=== PATIENT | female | born 1945 | race Caucasian/White ===

== ENCOUNTER → 2018-09-02 | Outpatient (CLI) | payer MEDICARE, BC ==
--- NOTE | 2018-09-02 12:28 | Diagnostic Imaging Report ---
INDICATION: Postmenopausal screening for osteoporosis. COMPARISON: None. FINDINGS: AP Spine L1-L4: [BMD (g/cm2): 1.011] [T-Score: -1.6] [Z-Score: 0.0] [BMD Previous: 1.061] [BMD % Change: -4.7] LT Hip Neck: [BMD (g/cm2): 0.80] [T-Score: -1.4] [Z-Score: 0.3] LT Hip Total: [BMD (g/cm2):0.903] [T-Score:-0.8] [Z-Score: 0.6] [BMD Previous: 0.971] [BMD % Change: -7.0] RT Hip Neck: [BMD (g/cm2):0.786] [T-Score:-1.8] [Z-Score:-0.1] RT Hip Total: [BMD (g/cm2):0.847] [T-score:-1.3] [Z-Score:0.2] [BMD Previous:0.942] [BMD % Change:-10.1] *Indicates significant change from prior examination based on 95% confidence level. World Health Organization criteria for BMD interpretation classify patients as Normal (T-score at or above -1.0), Osteopenic (T-score between -1.0 and -2.5) or Osteoporotic (T-score at or below -2.5). LIMITATIONS AND MODIFICATION: None. FRACTURE RISK (FRAX SCORE): The ten year probability of (%): Major Osteoporotic Fracture: [11.5] Hip Fracture: [2.3] IMPRESSION: 1. Osteopenia (Low bone mass). 2. Baseline examination. 3. See below National Osteoporosis Foundation guidelines on when to potentially initiate pharmacologic therapy. Based on the National Osteoporosis Foundation Guidelines, pharmacologic treatment should be initiated in any of the following, unless clinical conditions suggest otherwise: * Any patient with prior fragility fracture of the hip or vertebrae. A spine fracture indicates 5X risk for subsequent spine fracture and 2X risk for subsequent hip fracture. * Osteoporosis (T-score <-2.5). * Postmenopausal women and men age 50 and older with low bone mass/osteopenia (T-score between -1.0 and -2.5) by DXA and 10-year major osteoporotic fracture greater than 20% or a 10-year probability of hip fracture greater than 3%. These fracture risks are supplied above in the FRAX score, if applicable. * Clinician judgement and/or patient preferences may indicate treatment for people with 10-year fracture probabilities above or below these levels. Dictated by: Dictated on workstation # [id number]
== END ==
LOC: RAD 11:14
PROVIDERS: ATTEND Family Medicine
DX: Z13.820 Encounter for screening for osteoporosis (principal); M85.89 Other specified disorders of bone density and structure, multiple sites; Z78.0 Asymptomatic menopausal state
CPT/HCPCS: 77080

== ENCOUNTER → 2019-03-09 | Outpatient (CLI) | payer MEDICARE, BC ==
--- NOTE | 2019-03-09 13:47 | Diagnostic Imaging Report ---
INDICATION: Vomiting. FINDINGS: The lung bases are clear. The bowel gas pattern is nonspecific. There is no free air. There are some surgical clips in the right upper quadrant. IMPRESSION: Nonspecific bowel gas pattern. Dictated by: Dictated on workstation # [id number]
== END ==
LOC: RAD FS 13:25
PROVIDERS: ATTEND Family Medicine
DX: R11.2 Nausea with vomiting, unspecified (principal)
CPT/HCPCS: 74018

== ENCOUNTER 2019-06-30 14:40 | Outpatient (CLI) | payer MEDICARE ==
[~2019-06-30] VITALS: Ht 160 cm; Wt 69.1 kg
[~2019-06-30 14:40] MED LIST: ALPR0.254 PO; AMLO10TA4 PO; CHOL200014 PO; FLUO40CA12 PO; HYDR-3812 PO; LEVO112T2 PO; LOSA100T57 PO; METF-397 PO; MV,I66.7 PO; NF-MAG64T PO; NFNEB10T PO; PITA2TAB2 PO; PRAM0.257 PO; TURM538C PO; ZOLP10TA5 PO
== END 2019-07-01 08:51 | disposition home or self-care (01) ==
LOC: PREOP 14:40
PROVIDERS: ATTEND Surgery
DX: Z01.818 Encounter for other preprocedural examination (principal)